=== PATIENT | male | born 1945 | race Two or more races ===

== ENCOUNTER 2021-09-17 09:34 | Day surgery (SDC) | payer OTHER ==
[~2021-09-17] VITALS: Ht 175.3 cm; Wt 104.3 kg
[~2021-09-17 09:34] MED LIST: CALC600T65 OR; METF-370 PO; NITR-52 PO; OLME40TA9 PO; OMEP20TA PO
[2021-09-17] MEDS ORDERED: SUCCINYLCHOLINE CHLORIDE 20 MG/ML 10ML VIAL IV ONE (09:35)
[2021-09-17] MEDS ORDERED: fentaNYL CITRATE 100 MCG/2 ML VL ONE (13:01)
[2021-09-17] MEDS ORDERED: MIDAZOLAM HCL 2MG/2ML 2ml VIAL (1mg/ml) ONE (13:02)
[2021-09-17] MEDS ORDERED: MEPERIDINE HCL (50 MG/ML) 1 ML VIAL ONE (13:02)
[2021-09-17] MEDS ORDERED: CIPROFLOXACIN 400MG/200ML 200 ML IV ONE (13:17)
[2021-09-17] MEDS ORDERED: DexAMETHasone SOD PHOS 10MG/1ML VIAL INJ ONE (13:44)
[2021-09-17] MEDS ORDERED: MORPHINE SULFATE 4 MG/ML SYR/VIAL IV PRN (13:45)
[2021-09-17] MEDS ORDERED: LABETALOL HCL 5 MG/ML 4ML SYRINGE IV PRN (13:45)
[2021-09-17] MEDS ORDERED: HYDROmorphone HCL 2 MG/ML VL/or syr IV PRN (13:45)
[2021-09-17] MEDS ORDERED: ONDANSETRON HCL 4 MG/2 ML VIAL IV PRN (13:45)
[2021-09-17] MEDS ORDERED: MIDAZOLAM HCL 2MG/2ML 2ml VIAL (1mg/ml) IV PRN (13:45)
[2021-09-17] MEDS ORDERED: ePHEDrine SULFATE 50 MG/ML AMP IV PRN (13:45)
[2021-09-17] MEDS ORDERED: ETOMIDATE (2MG/ML) 20ML VIAL IV ONE (13:58)
[2021-09-17 14:40] VITALS: BP 150/77
== END 2021-09-17 15:00 | disposition home or self-care (01) ==
LOC: SUR 09:34
PROVIDERS: ATTEND Urology
DX: N40.1 Benign prostatic hyperplasia with lower urinary tract symptoms (principal); I10 Essential (primary) hypertension; I25.10 Atherosclerotic heart disease of native coronary artery without angina pectoris; E11.9 Type 2 diabetes mellitus without complications; Z98.890 Other specified postprocedural states; Z79.899 Other long term (current) drug therapy; Z87.891 Personal history of nicotine dependence; Z20.822 Contact with and (suspected) exposure to COVID-19
CPT/HCPCS: 52441; 52442; J0330; J0744; J1100; J2175; J2250; J3010; L8699; U0003